=== PATIENT | female | born 1955 | race Caucasian/White ===

== ENCOUNTER 2017-01-16 19:21 | Inpatient (IN) | payer OTHER ==
[~2017-01-16] VITALS: Ht 157.5 cm; Wt 84.3 kg
--- NOTE | ~2017-01-16 | CON ---
PATIENT'S NAME: SHAHEED GAYTAN [facility] AGE: 61 Y [address] ROOM: [place] [address] [facility] AD[facility] DATE: 01/16/2017 Consultation DISCHARGE DATE: FAMILY PHYSICIAN: Bill Mcgarry MD ATTENDING PHYSICIAN: Bill Mcgarry DATE OF CONSULTATION: 01/18/2017 REFERRING PHYSICIAN: Bill Mcgarry MD. REASON FOR VISIT: Wound Care visit to evaluate and assess lower leg edema. HISTORY OF PRESENT ILLNESS: This is a 61-year-old female patient who was admitted to [facility] with sepsis. She has a significant history of portal vein thrombosis, type 2 diabetes mellitus, anemia, essential hypertension, and pancreatic cancer. She was diagnosed with pancreatic cancer on November 28, 2014. She finished up chemo last week and is in the process of deciding further treatment plans. The patient reports her lower leg edema is due to low protein intake. For the past few months, she has been wearing compression stockings she purchased at [employer]. She is unaware of compression strength. She reports an open ulcer to her left lower extremity that has been presen for two weeks. She is treating it with a gauze pad. She reports when her legs swell up, she has had weeping ulcers in the past. She has skin stripping to her right forearm that occurred last week after an IV removal. No treatment has been performed to the site. The patient reports a poor oral intake. She admits to being cold. She denies fevers. She denies chest pain or shortness of breath. She denies intermittent claudication. She denies history of congestive heart failure. She has a history of type 2 diabetes mellitus. PAST MEDICAL HISTORY: Pancreatic cancer, diagnosed on November 28, 2014; type 2 diabetes mellitus with insulin use; essential hypertension; hyperlipidemia; chronic lower leg edema; portal vein thrombosis; and anemia. PAST SURGICAL HISTORY: Left total knee arthroplasty, port placement, liver stent placement, stent to the common bile duct, Whipple procedure with partial gastrectomy and duodenectomy, and cholecystectomy. FAMILY HISTORY: PATIENT'S NAME: SHAHEED GAYTAN [facility] AGE: 61 Y [address] ROOM: [place] [address] LOCATION: [facility]U ADMIT DATE: 01/16/2017 Consultation DISCHARGE DATE: FAMILY PHYSICIAN: Bill Mcgarry MD ATTENDING PHYSICIAN: Bill Mcgarry Reviewed and found to be noncontributory to present illness. SOCIAL HISTORY: The patient lives in [place], [place]. The patient denies alcohol, tobacco, or illicit drug use. ALLERGIES: CEPHALEXIN. CURRENT MEDICATIONS: Please refer to the medication administration record. REVIEW OF SYSTEMS: 10-point review of systems was completed and all are negative except as mentioned above in the HPI. PHYSICAL EXAMINATION: VITAL SIGNS: Temperature 97.5, pulse 100, respirations 20, blood pressure 125/85, pulse oximetry 95% on room air. Height 5 feet 2 inches and weight 77.9 kg. GENERAL: The patient is alert. No eye contact. Appears fatigued. HEENT: Head: Normocephalic, atraumatic. NECK: Supple. NEUROLOGICAL: Grossly nonfocal. MUSCULOSKELETAL: Active range of motion of all 4 extremities. GENITOURINARY: The patient refused. EXTREMITIES: +2 pedal pulses. +3 lower leg edema. Cap. refill intact. SKIN: Left lateral lower extremity has an open skin tear that measures 0.5 cm width x 0.5 cm length x 0.1 cm depth. Wound bed is moist pink in color. Small amount of serous exudate noted. Periwound intact. Right posterior forearm has an open wound that measures 1.0 cm width x 2.5 cm length x 0.1 cm depth. Wound bed is moist pink. There is a small amount of serous exudate noted. Periwound is intact. Heel is intact. Red/purple ecchymosis to left upper forearm. No open ulcers noted. The patient refused buttocks visualization. LABORATORY DATA: White blood cell count 19.2, hemoglobin 8.7, hematocrit 26.6, and platelets 82. Sodium 138, potassium 4.2, chloride 103, bicarbonate 25, BUN 23, creatinine 0.5, glucose 136. Albumin 1.3. Procalcitonin 0.25. ASSESSMENT AND PLAN: Again, this is a 61-year-old female patient admitted to [facility] with sepsis. Wound Care consulted to evaluate and treat lower leg edema. PATIENT'S NAME: SHAHEED GAYTAN [facility] AGE: 61 Y [address] ROOM: [facility] [address] [place], [place] [address] [facility] AD[facility] DATE: 01/16/2017 Consultation DISCHARGE DATE: FAMILY PHYSICIAN: Bill Mcgarry MD ATTENDING PHYSICIAN: Bill Mcgarry 1. Bilateral lower leg edema and third spacing secondary to hypoalbuminemia. The patient is to continue on diuretic therapy. Her Chris wraps were noted to be falling down, so I did fit her for size C Tubigrip stockings to be applied to her lower legs from her toes to popliteal crease, on in the morning and off at bedtime. The patient was instructed to perform leg elevation. I ordered a dietary consult as her albumin is low, however, this could be secondary to sepsis but nonetheless she has a poor oral intake and would benefit from seeing a dietitian. 2. Right forearm skin tear secondary to tape removal. No signs of infection noted. We will initiate the skin tear protocol using Vaseline gauze to the site, change daily. 3. Left lower extremity weeping ulcer secondary to excessive edema. Nursing is to apply Vaseline gauze to the site and change daily. The patient is wearing Tubigrip and encouraged to elevate her legs throughout the day. 4. Type 2 diabetes mellitus with insulin use. The patient is on Levemir and sliding scale insulin. 5. Pancreatic cancer. Dr. Garrett monitoring. I would like to thank Dr. Mcgarry for this consultation. SUMIT DORADO APRN FOR MD SITA WEAVER/florinda /[id number] d: 01/19/17 0219 t: 01/26/17 1604, CONSULTATION REPORT
--- NOTE | ~2017-01-16 | CON ---
PATIENT'S NAME: SHAHEED KULKARNI [facility] AGE: 61 Y [address] ROOM: [id number] [place], [place] [address] LOCATION: [facility]PCU ADMIT DATE: 01/16/2017 Consultation DISCHARGE DATE: FAMILY PHYSICIAN: Bill Mcgarry MD ATTENDING PHYSICIAN: Bill Mcgarry REFERRING PHYSICIAN: Mandy Garrett MD Consult to Dr. Mcgarry. REASON FOR CONSULTATION: Shaheed Kulkarni is a 61-year-old woman in the hospital with weakness, failure to thrive, possible sepsis, and definite stage IV adenocarcinoma of the pancreas. HISTORY OF PRESENT ILLNESS: The history of present illness and past medical history through 01/12/2017 is well delineated in the patient's [facility] progress note dictated that day by Dr. Garrett. That progress note is appended in the physician's report and will not be repeated here. Dr. Garrett reviewed the patient's complicated hospitalization from 01/05/2017 through 01/08/2017 on that day. The patient had experienced significant gastrointestinal bleeding from a phytobezoar, which was associated with multiple superficial lesser curve gastric ulcers. The patient's anticoagulants, which were administered because of an incidental discovery of portal vein thrombosis 4 months before, were discontinued. Dr. Garrett reviewed the pros and cons of further systemic chemotherapy keeping in mind the patient had an adverse reaction to oxaliplatin with her first cycle. The patient complained of persistent anasarca and indeed had fallen and had bruised her knee. However, the patient was at home. Leucovorin and 5-FU were initiated, and the patient was discharged home. The patient has had no recurrence of melena. The patient has not taken any further rivaroxaban. She believes her blood sugars have been less than 200. She has not been taking any steroids. She has been taking furosemide, bumetanide, and spironolactone for her persistent anasarca. On day 1 and 2, she did reasonably well, and on day 3, turned in her 5- fluorouracil pump. On day 3, she developed rigors, which lasted up to an hour. She had no fevers. She was very weak. She was not home alone but lived with her sister and [id number]. On day 3, she developed generalized pain and reported to the hospital. The patient's pain was most prominent in her left shoulder, neck, and down her left side. This was intermittent and has been present for 2 to 3 months. At its most, she rates it at 9 on a scale of 10 in intensity. The pain has not interfered with her sleep but does sometimes interfere with her activity and her ability to use her arm. She PATIENT'S NAME: SHAHEED KULKARNI [facility] AGE: 61 Y [address] ROOM: [id number] [place] [id number] LOCATION: [facility]U ADMIT DATE: 01/16/2017 Consultation DISCHARGE DATE: FAMILY PHYSICIAN: Bill Mcgarry MD ATTENDING PHYSICIAN: Bill Mcgarry uses hydrocodone/APAP to control the pain. She could identify no precipitating factors. The patient has persistent abdominal pain. She has mild dysuria and a persistent nonproductive cough. She has mild nausea and believes she may be constipated. She was capable of self-care until day 4 of therapy. On that day, she reported to the emergency room because of her fatigue and pain in her chest, radiating to her shoulder, left arm, and left neck as well as her generalized weakness and nausea. The patient complained of chills but no rigors to Dr. Messina, who evaluated her in the emergency room. Dr. Messina administered intravenous saline. A urinalysis revealed few bacteria, and no hematuria or pyuria. The white count was 34,600, hemoglobin 9.5, MCV 95, platelets 131,000. The patient had 92 neutrophils and 5 bands. The ESR was 7. The INR was 2.4. The PTT was 45. The CMS revealed the albumin was 1.3 g/dL. The total bilirubin was 1.8 mg/dL. The alkaline phosphatase was 278 international units/L. The transaminases, the electrolytes, and renal function were unremarkable. Blood cultures and urine cultures were obtained. They have not revealed any growth at this point. The patient's C-reactive protein and procalcitonin were elevated at 4.59 mg/dL and 0.25 ng/mL respectively. The proBNP was elevated at 999 pg/mL. Diuretics were continued, and the patient was placed on vancomycin, levofloxacin, and Piperacillin and tazobactam. The patient reports she is still fatigued, but her left chest pain is better controlled. A CAT scan of the chest with PE protocol revealed bibasilar streaky atelectatic change, but no evidence of pulmonary emboli. There was a small pericardial effusion. There was generalized pretracheal and AP window tissue thickening compatible with progressive metastatic disease since an earlier scan obtained on 11/30/2016. The upper abdomen revealed ascites, which the radiologist described as "massive" and increased from the previous study. A fatty liver and post-op changes of a Whipple procedure were present. The serous changes in the epigastric tissue from the patient's known pancreatic cancer were present. A CA 19-9 is pending. ACTIVE MEDICAL PROBLEMS (CHRONIC AND DIAGNOSED): 1. Adenocarcinoma of the pancreas as noted above. 2. Type 2 diabetes mellitus, developing prior to pancreatic cancer. 3. Essential arterial hypertension. 4. Hyperlipidemia. ACUTE MEDICAL ILLNESS, RESOLVED, PAST SURGERIES, INJURIES: 1. Whipple procedure on 08/16/2015. 2. ERCP with stent removal and percutaneous stent placement, July 2015. PATIENT'S NAME: SHAHEED KULKARNI [facility] AGE: 61 Y [address] ROOM: [place] [address] LOCATION: [facility]PCU ADMIT DATE: 01/16/2017 Consultation DISCHARGE DATE: FAMILY PHYSICIAN: Bill Mcgarry MD ATTENDING PHYSICIAN: Bill Mcgarry 3. Portal vein thrombosis found incidentally. 4. Left TKA. 5. Cholecystectomy. MEDICATIONS ON ADMISSION: 1. Acetaminophen. 2. Amoxicillin, prior to dental work. 3. Bumetanide. 4. Dexamethasone for chemotherapy. 5. Furosemide 40 mg p.o. daily. 6. Hydrocodone/APAP 1 to 2 every 4 to 8 hours as needed. 7. Insulin sliding scale. 8. Insulin detemir 10 units subcu in the evening. 9. Metformin 1000 mg p.o. b.i.d. 10. Ondansetron 8 mg p.o. p.r.n. nausea. 11. Pantoprazole 40 mg p.o. b.i.d. 12. Spironolactone 25 mg p.o. b.i.d. ADVERSE REACTIONS TO MEDICATIONS, TRANSFUSIONS, ALLERGIES: 1. Cephalosporins. 2. The patient had packed red blood cell transfusions in mid December for her gastrointestinal bleeding. TOBACCO: None. ALCOHOL: None. FAMILY HISTORY: Father of a brain aneurysm at 57. Mother of pneumonia complications at 70. SOCIAL HISTORY: The patient lives alone in [place] but is now living with her sister and [id number] in [place]. She was raised in [place], [place]. REVIEW OF SYMPTOMS: The patient has had mild pharyngitis and blurred vision, though she can read and watch TV. Her port may be a little tender. PHYSICAL EXAMINATION: VITAL SIGNS: Pulse 92 and regular, blood pressure 135/80, respiratory rate 16, temperature 97.4, height 62 inches, weight 74.3 kg (164 pounds), BMI 29.9 kg/m2. PATIENT'S NAME: SHAHEED KULKARNI [facility] AGE: 61 Y [address] ROOM: [place] [address] LOCATION: GPCU ADMIT DATE: 01/16/2017 Consultation DISCHARGE DATE: FAMILY PHYSICIAN: Bill Mcgarry MD ATTENDING PHYSICIAN: Bill Mcgarry GENERAL: A well-developed 61-year-old female with profound anasarca. HEENT: Unremarkable. LYMPH NODES: None palpable. NECK: No JVD or carotid bruits. CHEST WALL: Implanted vascular access device present. No erythema or tenderness. CV: Regular rhythm. No murmurs, bruits, or adventitious sounds. ABDOMEN: Healed abdominal scar. Bowel sounds present. Abdominal distention with a fluid wave. GENITALIA AND RECTAL: Not examined. EXTREMITIES: Generalized edema to the shoulders and the hip joint. NEURO: The patient is alert and oriented. She moves all 4 extremities but has difficulty picking up her legs. IMPRESSION: 1. Stage IV metastatic pancreatic cancer. The patient's prognosis is guarded. She is hypoalbuminemic, has generalized anasarca, and has had a relentless downhill course. She was unable to tolerate oxaliplatin, and in any case, the FOLFOX regimen is not highly active against pancreatic cancer. Leucovorin and 5-FU is little better than placebo. 2. It is possible she has sepsis, but it is also possible, she is just dying from her pancreatic cancer. In any case, we need to arrange for best supportive care with hospice in the future as she is definitely taking a turn for the worse. It is unlikely she will ever be in any position to take more definitive therapy for her cancer. PLAN: Diagnostic: Palliative care consult and hospice consult. TREATMENT: Best supportive care. PATIENT EDUCATION: Told she had severe anasarca due to her protein-calorie malnutrition, and chemotherapy has a poor therapeutic index at this point. Discussed the futility of cardiopulmonary resuscitation in her situation and recommended palliative care and hospice involvement. I did tell her that we would continue the antibiotics for now. PATIENT'S NAME: SHAHEED KULKARNI [facility] AGE: 61 Y [address] ROOM: [place] [address] [facility] AD[facility] DATE: 01/16/2017 Consultation DISCHARGE DATE: FAMILY PHYSICIAN: Bill Mcgarry MD ATTENDING PHYSICIAN: Bill Mcgarry KENY LATIF MD GKLexie/modl /[id number] d: 01/20/17 0136 t: 01/25/17 1825, CONSULTATION REPORT
--- NOTE | ~2017-01-16 | DS ---
PATIENT'S NAME: SHAHEED GAYTAN [facility] AGE: 61 Y [address] ROOM: [address] [place] [address] LOCATION: GPCU ADMIT DATE: 01/16/2017 Discharge Summary DISCHARGE DATE: 01/23/2017 FAMILY PHYSICIAN: Bill Mcgarry MD ATTENDING PHYSICIAN: Bill Mcgarry SUMMARY DATE OF : 01/23/2017. CAUSE OF : 1. Cardiopulmonary arrest secondary to metastatic pancreatic cancer. 2. Sepsis syndrome. HISTORY OF PRESENT STAY: The patient was admitted by my partner, Dr. Maxx Poole. She was placed on oral medications along with insulin sliding scale. There, she was thought to possibly be septic, so she was started on Zosyn and vancomycin was added in with pharmacy consultation for doses. Oncology consultation was obtained with Dr. Hernandez. We discussed things in detail. Eventually, sepsis was ruled out. The patient did have significant edema and was treated with Bumex. The patient was not eating well and house diabetic protein supplement was ordered. We discussed options with the patient. Eventually, it was elected to proceed with Palliative Care consult and Hospice consult. We were planning on dismissing the patient with hospice care, but the patient prior to this. MD LESLI MIRELES/modl /[id number] d: 02/12/17 0034 t: 02/17/17 1042, DISCHARGE SUMMARY
--- NOTE | ~2017-01-16 | ER ---
PATIENT'S NAME: SHAHEED GAYTAN [facility] AGE: 61 Y [address] ROOM: [id number] [place], [place] [address] LOCATION: GPCU ADMIT DATE: 01/16/2017 ER/Outpatient Report DISCHARGE DATE: FAMILY PHYSICIAN: Bill Mcgarry MD ATTENDING PHYSICIAN: Bill Mcgarry Admission date and time are documented in the medical record. I saw the patient at 1930 hours. CHIEF COMPLAINT: Lateral chest pain, radiating to her left shoulder, left arm, left neck, accompanied with generalized weakness and nausea. HISTORY OF PRESENT ILLNESS: This patient is a 61-year-old female with a 3-day history of some left lateral chest pain radiating up to her left shoulder, left arm, and up into her left neck. It is accompanied with nausea and generalized weakness. No shortness of breath or diaphoresis. No vomiting, diarrhea, or urinary frequency, urgency, or dysuria. She had low temperature at 96.8 on arrival of the paramedics. She was chilling, but did not really have any true rigors. Temperature was 97.1 on arrival here to the emergency department. She was little tachy, had a pulse rate of 103, respiratory rate was 16, and blood pressure 152/80. No headache, eyes, ears, nose, throat, neck, or spine pain. No visual or auditory disturbance, lateralizing weakness, numbness, tingling, or loss of function. Little dizzy, lightheaded, but no syncope or near syncope. No fall or trauma. No abdominal pain. Does have a lot of edema in her lower extremities and some weepiness and some redness. Skin has some redness on both arms and lower extremities. Does have insulin-dependent diabetes mellitus type 2. Does have a history of pancreatic cancer, anemia, and portal vein thrombosis. She has had an upper GI bleed. No psych issues, neuro changes that of CVA, TIA, or seizure disorder. HOME MEDICATIONS: See attached medication list. ALLERGIES: KEFLEX. SOCIAL HISTORY: Nonsmoker, nondrinker. SIGNIFICANT PAST MEDICAL HISTORY: Insulin-dependent diabetes mellitus type 2, dyslipidemia, hypertension, pancreatic cancer, anemia, portal vein thrombosis, upper GI bleed, lower extremity edema with weepiness of the skin, degenerative joint disease, and PATIENT'S NAME: SHAHEED GAYTAN [facility] AGE: 61 Y [address] ROOM: [id number] [place], [place] [address] LOCATION: GPCU ADMIT DATE: 01/16/2017 ER/Outpatient Report DISCHARGE DATE: FAMILY PHYSICIAN: Bill Mcgarry MD ATTENDING PHYSICIAN: Bill Mcgarry degenerative osteoarthritis. OPERATIONS: Left total knee arthroplasty, Whipple procedure, esophagogastroduodenoscopy, ERCP, radiation therapy, chemotherapy, left knee arthroscopy, and cholecystectomy. REVIEW OF SYSTEMS: All systems reviewed by me are negative with the exception of those discussed in the history of present illness. PHYSICAL EXAMINATION: VITAL SIGNS: Temperature 97.1, pulse 103, regular, respirations 16, blood pressure 152/80, and O2 sat on 2 L oxygen by nasal cannula was 98%. HEAD: Normocephalic. No abrasion, contusion, laceration, or swelling. EYES: Extraocular muscles intact. PERRL. Sclerae and conjunctivae clear, nonicteric. EARS: Clear TMs bilaterally. NOSE: Clear. THROAT: Clear. Mucous membranes moist. NECK: Negative. SPINE: Negative. LUNGS: Clear. No rales, rhonchi, or wheezes. HEART: Regular, tachy, pulses palpable. No palpable chest pain anteriorly. Little bit of chest discomfort lateral aspect of her chest, left shoulder, and left lateral neck area. ABDOMEN: Soft, nondistended, nontender. Good bowel tones. No organomegaly or abnormal mass palpable. EXTREMITIES: The patient has peripheral lower extremity edema with weepiness and redness. She had some redness in her right arm and left arm. No cyanosis or deformities. NEURO: Intact. EMERGENCY DEPARTMENT COURSE: I did start the patient on IV normal saline fluids. Gave her Zosyn 4.5 g IV in the emergency department. Chest x-ray showed no acute infiltrate or changes. We will review x-ray with the radiologist. EKG showed poor R-wave progression, low voltage, and some questionable anterior and inferior changes. Remained this way x2, 2 hours apart. Cardiac enzymes were normal x2, 2 hours apart. CPK was normal x2, 2 hours apart. White count was 34,600, 92 segs, 5 bands, 3 lymphs, hemoglobin was 9.5 with hematocrit 29.4, and platelet count was 131,000. Sed rate was 7, PTT was 45, pro-time is 27.2 with an INR 2.4. Procalcitonin was elevated at 0.52. Lactate was elevated at 6.9. Chemistry was normal except for an elevated glucose 137, low calcium 7.7, elevated total bilirubin of 1.6, elevated alk phos 347, and elevated AST of 48. Magnesium PATIENT'S NAME: SHAHEED GAYTAN [facility] AGE: 61 Y [address] ROOM: [id number] [place], [place] [address] LOCATION: GPCU ADMIT DATE: 01/16/2017 ER/Outpatient Report DISCHARGE DATE: FAMILY PHYSICIAN: Bill Mcgarry MD ATTENDING PHYSICIAN: Bill Mcgarry was 2. Thyroid was normal. CRP was 4.59. Pro-BNP was 999. Arterial blood gases on 2 L showed a pH of 7.44, pCO2 of 38, pO2 of 77, O2 sat of 96%. Urine showed 0-2 whites, 0-2 reds, 0-2 epithelial cells, few bacteria, 1+ mucus, and negative nitrites. Blood cultures are obtained and results pending. D-dimer was elevated 1.23. I went ahead with a CT scan of the chest with PE protocol that showed no evidence of pulmonary embolism. There was main pulmonary artery prominence consistent with pulmonary arterial hypertension and some patchy opacities in the mid-lower lungs bilaterally, fatty liver, and gastric distention. She had also several loops of bowel that were thick-walled in the upper abdomen with some ascites. IMPRESSION: 1. Sepsis, etiology uncertain. She does meet criteria with hypothermia, tachycardia, leukocytosis with left shift, thrombocytopenia, elevated procalcitonin, elevated lactate, and elevated CRP. 2. History of pancreatic cancer. 3. Anemia. 4. Insulin-dependent diabetes mellitus type 2. 5. History of hypertension. 6. History of portal vein thrombosis. 7. Recent history of upper gastrointestinal bleed. 8. Dyslipidemia. 9. Lower extremity edema with inflammation and weeping. PLAN: I did discuss the patient with Dr. Poole for Dr. Mcgarry. We will admit the patient to PCU telemetry for further evaluation and treatment. I did discuss my findings with the patient. She understands. Again, we did start her on Zosyn 4.5 g IV here in the emergency department. Accumulated critical care time was 35 minutes. MD DEBRA OVALLES/cecilyl /[id number] d: 01/17/17 0135 t: 01/17/17 1812, OUTPATIENT REPORT
--- NOTE | ~2017-01-16 | CON ---
PATIENT'S NAME: [facility] AGE: 61 Y [address] ROOM: [place] [address] LOCATION: GPCU ADMIT DATE: 01/16/2017 Consultation DISCHARGE DATE: FAMILY PHYSICIAN: Bill Mcgarry MD ATTENDING PHYSICIAN: Bill Mcgarry DATE OF CONSULTATION: 01/19/2017 PALLIATIVE CARE CONSULTATION LOCATION: [place] [address]. REFERRING PHYSICIAN: Dr. Hernandez. REASON FOR CONSULTATION: This is a palliative care referral for end-of-life discussion and hospice. ADMITTING DIAGNOSES: Lateral chest pain radiating to her left shoulder, left arm, left neck, and generalized weakness and nausea. HISTORY OF PRESENT ILLNESS: This 61-year-old female with a 3-day history of left lateral chest pain radiating to her left shoulder and left arm and left neck, increasing nausea and generalized weakness. She currently denies any pain, but is uncomfortable with movement, generalized edema in abdomen, lower extremities up to groin. No nausea or vomiting. Decreased appetite and early satiety. No vomiting, diarrhea, or dysuria. She has profound fatigue. She has a known history of pancreatic cancer, was a stage III, T4 N0 M0 on December 17, 2014. Cancer had metastasized on scans, on 12/05/2015, has been on several chemotherapy treatments. Last CT on 11/30/2016 showed recurrent pancreatic cancer and anasarca and generalized body wall edema, increased tiny lung based nodules, slightly increased over long-term, and moderate ascites. PAST MEDICAL HISTORY: Metastatic pancreatic cancer diagnosed on November 28, 2014; type 2 diabetes mellitus, insulin use; essential hypertension; hyperlipidemia; chronic lower leg edema; anasarca; portal vein thrombosis; anemia. PAST SURGICAL HISTORY: Cholecystectomy, endoscopy, removal of biliary stent, right knee replacement, left knee surgery, lipoma removal, ovarian cyst, percutaneous transhepatic PATIENT'S NAME: [facility] AGE: 61 Y [address] ROOM: [place] [address] LOCATION: GPCU ADMIT DATE: 01/16/2017 Consultation DISCHARGE DATE: FAMILY PHYSICIAN: Bill Mcgarry MD ATTENDING PHYSICIAN: Malgorzata,Dhaval biliary drainage from image guidance contrast, percutaneous transhepatic insertion of biliary stent, imaging guidance and port placement, and Whipple procedure. ALLERGIES: TO KEFLEX. FAMILY HISTORY: Father at the age of 57 with a brain aneurysm. Her sister had an asthma. Mother had breast cancer, coronary artery disease, and diabetes, hypertension and CVA. Sister had uterine cancer. A sister with heart disease. A sister with COPD. Brother and father with macular degeneration. Brother, osteoporosis. REVIEW OF SYSTEMS: Review of systems was done and is negative except as mentioned in HPI and listed below: GI: No nausea, vomiting, diarrhea, or constipation. Last bowel movement 01/19. MUSCULOSKELETAL: Weakness and fatigue, tried to standup today and got very dizzy. SKIN: Increasing edema. PSYCH: No history of depression. Positive for fatigue and loss of energy and feeling like a burden to her sister. PHYSICAL EXAMINATION: GENERAL: This is a 61-year-old female, alert and oriented, in no acute distress. VITAL SIGNS: Temperature 97.6, pulse 108, respirations 16, blood pressure 112/62, O2 saturations 94%. She is 5 feet 2 inches, weighs 171 pounds with a BMI of 29.9. SKIN: Warm and dry. Some ecchymotic areas noted on arms. HEENT: Head: Normocephalic and atraumatic. Sclerae are nonicteric. Conjunctivae are pale, pink. Mouth is pink and moist without exudate. LYMPH: No cervical adenopathy or thyromegaly. RESPIRATORY: Clear to auscultation bilaterally. Diminished breath sounds, even, and regular. CARDIAC: S1, S2 without murmurs or bruits, 3 to 4+ pitting edema in lower extremities up to groin. ABDOMEN: Soft and rounded. Ascites noted. No fluid wave. Positive bowel tones. No hepatosplenomegaly. Palliative Performance Scale is 30% totally bed bound, unable do any activity, extensive disease, total care, intake is minimal to sips. Conscious level is full with periods of drowsiness. PATIENT'S NAME: [facility] AGE: 61 Y [address] ROOM: [place] [address] LOCATION: GPCU ADMIT DATE: 01/16/2017 Consultation DISCHARGE DATE: FAMILY PHYSICIAN: Bill Mcgarry MD ATTENDING PHYSICIAN: Bill Mcgarry LABORATORY DATA: Sodium 138, potassium 4.2, BUN 23, and creatinine 0.5, and blood sugars is 136, and albumin is 1.3. Alkaline phosphatase is 278. GFR is 60. ProBNP is 999. White count is 19.2, hemoglobin 8.7, hematocrit 26.6, and 82,000 platelets. Pre-albumin on 01/06 was 4. IMPRESSION: Weakness, fatigue, edema, early satiety, stage IV pancreatic cancer. PLAN: 1. Met with the patient. Discussed chronic pancreatic cancer, overall declining status, not eating, weaker, not able to even stand much today with assistance, unable to care for self, increasing edema, and advancing pancreatic cancer. The patient states she had a talk with Dr. Hernandez and cancer is getting worse and the patient has decided no more chemotherapy at this time and is ready to talk about hospice. 2. Answered questions and concerns on hospice benefits and services. The patient would like to speak with hospice tomorrow and have her sister present. Scheduled the meeting for 3:30 tomorrow to discuss options. Faxed information to [facility]. 3. Code status and advance directive: The patient has a Five Wishes on the chart and is currently do not attempt resuscitation and the patient agrees with that. GOALS OF CARE: 1. The patient would like to get more information on hospice and meet with team. 2. Would like to check out options here in the hospital and if her insurance would pay for it. Did notify Betsey, senior procurement manager, to find out what hospice services she had with her insurance. Betsey called back and stated that she does have hospice benefits, but they would not pay for a room for end-of-life care, would only assist in the home or shelter. The patient would be responsible for caregivers and room and board. 3. Not to be a burden to her family, physically or financially. We will try to get with the hospice team together to find a plan workable for patient and her sister. We will continue to help transition the patient to hospice and get support/caregivers and do help with her sister. Total time was 60 minutes with 55 minutes for counseling and coordination of care. Thank you for allowing me to assist this patient and family. PATIENT'S NAME: [facility] AGE: 61 Y [address] [place]OM: [facility] [address] [place], [place] [address] LOCATION: [facility] ADMIT DATE: 01/16/2017 Consultation DISCHARGE DATE: FAMILY PHYSICIAN: Bill Mcgarry MD ATTENDING PHYSICIAN: Bill Mcgarry NAVDEEP HOLGUIN NP FOR MD MEENA FIELDS/modl /[id number] d: 01/20/1726 t: 01/27/17 1200, CONSULTATION REPORT
[~2017-01-16 19:21] MED LIST changes: -AMOXICILLIN500 MG PO; -HYDROCODON-ACE1 EAC4 PO; -XARELTO20 MG PO
[2017-01-16 20:04] LABS: HEMATOCRIT 29.4 % (33.0-46.0); HEMOGLOBIN 9.5 g/dL (10.0-15.0); MCH 30.6 pg (27.0-34.0); MCHC 32.3 gm/dL (32.0-36.5); MCV 94.8 fl (83.0-98.0); MPV 11.8 fl (9.4-12.4); RDW-CV 21.8 % (11.9-14.6)
[2017-01-16 20:05] LABS: PLATELET COUNT 131 K/uL (150-450); WBC 34.6 K/uL (4.0-11.0)
[2017-01-16 20:11] LABS: BICARBONATE 25.8 mmol/L (18.0-23.0); PCO2 38 mmHg (35-45); PO2 77 mmHg (80-90)
[2017-01-16 20:13] LABS: LACTATE 6.9 mEq/L (0.50-1.60)
[2017-01-16 20:18] LABS: PTT 45 SECONDS (25-32)
[2017-01-16 20:24] LABS: INR - (THERAPEUTIC) 2.4 (0.9-1.1); PROTIME 27.2 SECONDS (9.6-11.1)
[2017-01-16 20:27] LABS: ALK PHOS 347 IU/L (33-138); ALT 57 IU/L (12-78); ANION GAP 17.9 (10.0-19.0); AST 48 IU/L (10-40); BLOOD UREA NITROGEN 24 mg/dL (6-24); CALCIUM 7.7 mg/dL (8.5-10.5); CHLORIDE 100 mMol/L (96-110); CO2 23 mMol/L (22-32); CPK 76 IU/L (21-215); CREATININE 0.9 mg/dL (0.5-1.1); ESTIMATED GFR (MDRD EQUATION) > 60; POTASSIUM 3.9 mMol/L (3.7-5.1); SODIUM 137 mMol/L (135-145); TOTAL BILIRUBIN 1.6 mg/dL (0.0-1.5)
[2017-01-16 20:29] LABS: ALBUMIN 1.5 gm/dL (3.5-5.0); TOTAL PROTEIN 4.5 g/dL (6.0-8.4)
[2017-01-16 20:49] LABS: ABSOLUTE NEUTROPHIL CT (ANC) 33.6 K/uL (1.8-7.8); BANDED NEUTROPHIL # 1.7 K/uL (0.0-0.1); BANDED NEUTROPHILS % 5 %; LYMPHOCYTE % 3 %; SEGMENTED NEUTROPHIL # 31.8 K/uL (1.8-7.8); SEGMENTED NEUTROPHIL % 92 %
[2017-01-16 20:58] LABS: BLOOD URINE NEGATIVE /UL (NEGATIVE); GLUCOSE URINE NEGATIVE (NEGATIVE); KETONE URINE 5 mg/dL (NEGATIVE); LEUKOCYTES URINE NEGATIVE /UL (NEGATIVE); NITRITE URINE NEGATIVE (NEGATIVE); PROTEIN URINE 30 mg/dL (NEGATIVE); UROBILINOGEN URINE 1 mg/dL (NORMAL)
[2017-01-16 20:59] LABS: COLOR URINE YELLOW (YELLOW); TURBIDITY URINE CLEAR (CLEAR)
[2017-01-16 21:01] LABS: RBC URINE 0-2 #/HPF (NEGATIVE); WBC URINE 0-2 #/HPF (NEGATIVE)
[2017-01-16 21:02] LABS: BACTERIA URINE FEW (NEGATIVE); EPITHELIAL URINE 0-2 #/HPF (NEGATIVE); MUCUS URINE 1+ (NEGATIVE)
[2017-01-16 21:51] LABS: CPK 55 IU/L (21-215)
[2017-01-17 00:45] LABS: BICARBONATE 27.6 mmol/L (18.0-23.0); PCO2 37 mmHg (35-45); PO2 69 mmHg (80-90)
[2017-01-17 00:46] LABS: LACTATE 4.7 mEq/L (0.50-1.60)
[2017-01-17 04:43] LABS: ALK PHOS 284 IU/L (33-138); ALT 51 IU/L (12-78); ANION GAP 16.1 (10.0-19.0); AST 41 IU/L (10-40); BLOOD UREA NITROGEN 21 mg/dL (6-24); CHLORIDE 101 mMol/L (96-110); CO2 25 mMol/L (22-32); CREATININE 0.7 mg/dL (0.5-1.1); ESTIMATED GFR (MDRD EQUATION) > 60; POTASSIUM 4.1 mMol/L (3.7-5.1); SODIUM 138 mMol/L (135-145); TOTAL BILIRUBIN 1.7 mg/dL (0.0-1.5)
[2017-01-17 04:45] LABS: ALBUMIN 1.3 gm/dL (3.5-5.0); CALCIUM 7.4 mg/dL (8.5-10.5); TOTAL PROTEIN 3.9 g/dL (6.0-8.4)
[2017-01-17 04:49] LABS: HEMATOCRIT 26.2 % (33.0-46.0); HEMOGLOBIN 8.6 g/dL (10.0-15.0); MCH 30.4 pg (27.0-34.0); MCHC 32.8 gm/dL (32.0-36.5); MCV 92.6 fl (83.0-98.0); MPV 12.4 fl (9.4-12.4); PLATELET COUNT 102 K/uL (150-450); RBC 2.83 M/uL (3.50-5.50); RDW-CV 21.2 % (11.9-14.6)
[2017-01-17 05:23] LABS: ABSOLUTE NEUTROPHIL CT (ANC) 28.4 K/uL (1.8-7.8); BANDED NEUTROPHIL # 5.2 K/uL (0.0-0.1); BANDED NEUTROPHILS % 18 %; LYMPHOCYTE # 0.6 K/uL (0.8-4.0); LYMPHOCYTE % 2 %; SEGMENTED NEUTROPHIL # 23.2 K/uL (1.8-7.8); SEGMENTED NEUTROPHIL % 80 %
[2017-01-17] MEDS ORDERED: HYDROCODON-ACE1 EAC4 PO (08:52)
[2017-01-17] MEDS ORDERED: XARELTO20 MG PO (08:54)
[2017-01-17] MEDS ORDERED: AMOXICILLIN500 MG PO (08:54)
[2017-01-18 04:49] LABS: HEMATOCRIT 26.6 % (33.0-46.0); HEMOGLOBIN 8.7 g/dL (10.0-15.0); MCH 30.2 pg (27.0-34.0); MCHC 32.7 gm/dL (32.0-36.5); MCV 92.4 fl (83.0-98.0); MPV 12.2 fl (9.4-12.4); PLATELET COUNT 82 K/uL (150-450); RBC 2.88 M/uL (3.50-5.50); RDW-CV 21.2 % (11.9-14.6)
[2017-01-18 04:52] LABS: ALBUMIN 1.3 gm/dL (3.5-5.0); ALK PHOS 278 IU/L (33-138); ALT 47 IU/L (12-78); ANION GAP 12.2 (10.0-19.0); AST 39 IU/L (10-40); BLOOD UREA NITROGEN 23 mg/dL (6-24); CALCIUM 7.3 mg/dL (8.5-10.5); CHLORIDE 103 mMol/L (96-110); CO2 27 mMol/L (22-32); CREATININE 0.5 mg/dL (0.5-1.1); ESTIMATED GFR (MDRD EQUATION) > 60; POTASSIUM 4.2 mMol/L (3.7-5.1); SODIUM 138 mMol/L (135-145); TOTAL BILIRUBIN 1.8 mg/dL (0.0-1.5)
[2017-01-18 04:53] LABS: WBC 19.2 K/uL (4.0-11.0)
[2017-01-18 05:22] LABS: ABSOLUTE NEUTROPHIL CT (ANC) 18.2 K/uL (1.8-7.8); BANDED NEUTROPHIL # 3.5 K/uL (0.0-0.1); BANDED NEUTROPHILS % 18 %; LYMPHOCYTE # 0.8 K/uL (0.8-4.0); LYMPHOCYTE % 4 %; MONOCYTE # 0.2 K/uL (0.0-1.0); SEGMENTED NEUTROPHIL # 14.8 K/uL (1.8-7.8); SEGMENTED NEUTROPHIL % 77 %
[2017-01-19 07:50] LABS: ANION GAP 12.9 (10.0-19.0); BLOOD UREA NITROGEN 21 mg/dL (6-24); CHLORIDE 102 mMol/L (96-110); CO2 27 mMol/L (22-32); CREATININE 0.6 mg/dL (0.5-1.1); ESTIMATED GFR (MDRD EQUATION) > 60; POTASSIUM 3.9 mMol/L (3.7-5.1); SODIUM 138 mMol/L (135-145)
[2017-01-19 07:51] LABS: CALCIUM 7.4 mg/dL (8.5-10.5)
[2017-01-20 05:43] LABS: ANION GAP 12.4 (10.0-19.0); BLOOD UREA NITROGEN 24 mg/dL (6-24); CHLORIDE 102 mMol/L (96-110); CO2 27 mMol/L (22-32); CREATININE 0.6 mg/dL (0.5-1.1); ESTIMATED GFR (MDRD EQUATION) > 60; POTASSIUM 3.4 mMol/L (3.7-5.1); SODIUM 138 mMol/L (135-145)
== END 2017-01-23 11:15 | disposition expired | DRG 872 ==
LOC: GMED 19:21 → GPCU 22:34
PROVIDERS: Emergency Medicine; Obstetrics & Gynecology Obstetrics; ADMIT Family Medicine
DX: A41.9 Sepsis, unspecified organism (principal); C25.9 Malignant neoplasm of pancreas, unspecified; E44.0 Moderate protein-calorie malnutrition; L97.929 Non-pressure chronic ulcer of unspecified part of left lower leg with unspecified severity; R18.8 Other ascites; E11.9 Type 2 diabetes mellitus without complications; Z79.4 Long term (current) use of insulin; Z85.07 Personal history of malignant neoplasm of pancreas; Z86.718 Personal history of other venous thrombosis and embolism; I10 Essential (primary) hypertension; E78.5 Hyperlipidemia, unspecified; R60.9 Edema, unspecified; R31.0 Gross hematuria
CPT/HCPCS: C9113; J1956; J2270; J2543; J3370; J7030; J7040; J7050; Q0162; Q9967

== ENCOUNTER → 2017-01-16 | Outpatient (CLI) | payer OTHER ==
[~2017-01-16] MED LIST: ACTOS30 MG PO; ALDACTONE25 MG PO; AMOXICILLIN500 MG PO; AUGMENTIN875 MG PO; COMPAZINE10 MG PO; DECADRON4 MG PO; DEXAMETHASONE4 MG PO; FLORASTOR250 MG PO; GLUCOPHAGE1000 MG PO; HYDROCODON-ACE1 EAC4 PO; HYZAAR 100-251 EACH PO; IMODIUM2 MG PO; KLOR-CON 1010 MEQ PO; LASIX40 MG PO; LEVEMIR FL100 UNIT/1 SUB-Q; LOVENOX 10100 MG/1 M SUB-Q; MAG-OX-400(241400 MG PO; NOVOLOG FL100 UNIT/1 SUB-Q; PEPCID20 MG PO; PROTONIX40 MG PO; TYLENOL WITH C1 EACH PO; TYLENOL325 MG PO; XARELTO20 MG; XARELTO20 MG PO; ZOFRAN4 MG PO; [UNRECOGNIZED DRUG - OTHER] PO
== END | disposition disaster alternative care site (69) ==
LOC: GAMB 18:56
DX: R07.9 Chest pain, unspecified (principal); T68.XXXA Hypothermia, initial encounter; E11.8 Type 2 diabetes mellitus with unspecified complications; I10 Essential (primary) hypertension; Z85.89 Personal history of malignant neoplasm of other organs and systems; Z79.899 Other long term (current) drug therapy; Z79.4 Long term (current) use of insulin; Z88.8 Allergy status to other drugs, medicaments and biological substances
CPT/HCPCS: A0422; A0425; A0427